=== PATIENT | female | born 2000 | race Caucasian/White ===

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

== ENCOUNTER 2019-09-12 22:02 | Observation (INO) ==
[2019-09-12] MEDS ORDERED: ONDANSETRON INJ 2 MG/ML 2 ML VIAL IV STA ×2 (22:47→23:04)
[2019-09-12 23:03] LABS: Basophils # (auto) 0.03 K/uL (0-0.2); Basophils % (auto) 0.3 %; Eosinophils # (auto) 0.09 K/uL (0-0.5); Eosinophils % (auto) 0.9 %; Hematocrit (blood only) 44.9 % (37-47); Hemoglobin 15.5 g/dL (12.0-16.0); Immature Granulocytes # (auto) 0.02 K/uL (0.00-0.02); Immature Granulocytes % (auto) 0.2 %; Lymphocytes % (auto) 28.5 %; Mean Corpuscular Hgb Conc 34.5 g/dL (32-36); Mean Corpuscular Volume 89.8 fL (80-100); Mean Platelet Volume 9.3 fL (7.4-10.4); Monocytes # (auto) 0.58 K/uL (0.11-0.59); Monocytes % (auto) 5.5 %; Neutrophils # (auto) 6.81 K/uL (1.4-6.5); Neutrophils % (auto) 64.6 %; Platelet Count 359 K/uL (130-400); RDW Standard Deviation 38.9 fL (36.4-46.3); White Blood Count 10.53 K/uL (4.8-10.8)
[2019-09-12] MEDS ORDERED: KETOROLAC 30 MG/ML VIAL IV STA (23:04)
[2019-09-12] MEDS ORDERED: HYDROmorphone INJ 0.5 MG/0.5 ML SYR IV PRN (23:04)
[2019-09-12] MEDS ORDERED: SODIUM CHLORIDE 0.9% 1000ML 1,000 ML IV SCH (23:15)
[2019-09-12 23:19] LABS: Albumin Level 3.9 gm/dl (3.4-5.0); BUN Creatinine Ratio 10.9 (10-20); Calcium 9.3 mg/dl (8.5-10.1); Creatinine Clr Calc Pharmacy 86.7 ml/min; Est GFR (African American) 98.7; Est GFR (Non-African American) 85.1; Potassium 3.5 mmol/L (3.5-5.1)
[2019-09-12 23:22] LABS: Albumin Globulin Ratio 0.9 (0.9-2); Bilirubin,Total 0.3 mg/dl (0.2-1); Globulin 4.3 gm/dl (2.5-4.0); Total Protein 8.2 gm/dl (6.4-8.2)
[2019-09-12 23:28] LABS: Pregnancy Test, Urine Negative (Negative)
[2019-09-12 23:31] LABS: Appearance Urine Turbid (Clear); Bacteria Urine Automated 1+ (Negative); Bilirubin Urine Negative (Negative); Blood Urine Negative (Negative); Color Urine Yellow; Epithelial Cell Urine Auto >30 /lpf (0-5); Glucose Urine UA Negative (Negative); Ketones Urine Negative (Negative); Leukocyte Esterase Urine Negative (Negative); Nitrite Urine Negative (Negative); Protein Urine Negative (Negative); RBC Urine Automated 0-4 /hpf (0-4); Specific Gravity Urine 1.025 (1.000-1.030); Urobilinogen Urine Negative (Negative); pH Urine 6.5 (4.5-7.5)
[2019-09-12] MEDS ORDERED: IOVERSOL 100ml IV PRN (23:43)
[2019-09-13] MEDS ORDERED: cefOXitin 2,000 MG/60 ML BAG IV STA (00:36)
[2019-09-13] MEDS ORDERED: METOCLOPRAMIDE HCL INJ 5 MG/ML 2 ML VIAL IV STA (00:40)
[2019-09-13] MEDS ORDERED: IOVERSOL 100ml IV PRN (03:18)
--- NOTE | 2019-09-13 04:30 | History & Physical Report ---
Date of Service September 13, 2019 Assessment & Plan (1) Appendicitis, acute: Pathology was discussed with the patient including modality of therapy which would include antibiotic or laparoscopy and this was discussed as stated in for the patient felt her just have a 20% chance that she may have a recurrent attack with antibiotic treatment she would like to proceed with laparoscopy risk and complication of the surgery were explained to her including bleeding infection injury to other organs and she would like to proceed accordingly She had a sensitivity to penicillin hives at a young age we will discuss with anesthesia and plan to give her preoperative antibiotics suspect Mefoxin would be okay Present on Admission?: Yes History of Present Illness I was called approximately 12:30 in the morning by the ER physician with the patient that had a normal white count [address] noncontrast with a history of vomiting pretty significantly at that time recommended for the CT scan with contrast which was done there was because approximately 4:00 with a dilated appendix at 9 mm and some fat stranding Primary Care Provider: [facility] Allergies Allergy/AdvReac Type Severity Reaction Status Date / Time Penicillins Allergy Intermediate HIVES Verified 09/12/19 22:41 Home Medications Home Medications Medication Instructions Recorded Confirmed Type acetaminophen [Tylenol Extra 1,000 mg PO Q6H PRN 09/12/19 09/12/19 History Strength] levonorgestrel-ethinyl estrad 1 tab PO DAILY 09/12/19 09/12/19 History [Larissia] Past Med/Surg History Medical History Appendicitis, acute Asthma Fracture of phalanx of left little finger Surgical History History of orthopedic surgery Social History Preferred Language: French Communication Ability: Effective Education Professor Required: No Beliefs That Will Affect Care: None Current Living Situation: Alone Feels Safe at Home: Yes Smoking Status: Never smoker Second Hand Exposure: No ; Hx Alcohol Use: No Hx Substance Use: No Review of Systems Gastrointestinal: The patient stated that she started getting sick approximately 11 hours ago where pain started around the upper belly and eventually migrated to the right side she had no vomiting until she came into the emergency room she has never had any pain like this before In general she is been healthy without any issues the only surgery she said is a fracture finger the needed pin Physical Exam Constitutional: WD/WN, vitals as above well developed and well nourished Eyes: Clear nonicteric conjunctiva slightly injected ENMT: external ear and nose normal, oropharynx normal Neck: trachea midline, no thyromegaly Respiratory: normal respiratory effort, lungs clear to auscultation Cardiovascular: RRR, no murmur, no edema Gastrointestinal (Abdomen): Patient has pain and tenderness in the right lower quadrant no true McBurney sign Results & Data Vital Signs (Past 12 Hours) Vital Signs Temp Pulse Pulse Resp BP BP Pulse Ox 09/13/19 03:19 66 18 125/59 L 97 09/13/19 01:43 78 17 137/64 98 09/13/19 00:52 99 H 19 129/74 99 09/12/19 23:40 89 16 149/86 H 100 09/12/19 23:14 78 20 100 09/12/19 22:35 77 20 120/82 100 09/12/19 22:04 36.6 C 83 20 136/88 100 PG Care Time/CCT Total # of Minutes Spent Total Time Spent with Patient: Total time spent is greater than 50% in coordination of care (as documented) at patient's floor/unit and/or counseling patient:
--- NOTE | 2019-09-13 04:35 | Emergency Department Note ---
Entered by Kaylee Flores acting as a scribe for Wilber Cortes MD History of Present Illness General Chief complaint: Abdominal Pain Stated complaint: ABD PAIN Time Seen by Provider: 09/12/19 22:58 Source: patient History of Present Illness Onset (ago): hour(s) 5 Location: abdomen (central) Pain Consistency: + other (worsening) Maximum Pain Intensity: 8 Quality: + other (cramping) Relieved By: not by medication (Tylenol) Associated symptoms: + nausea/vomiting Treatments prior to arrival: other (Tylenol) The patient is a 19 year old female who presents to the Emergency Room with complaints of worsening central abdominal pain that began at 1700, approximately 5 hours prior to arrival. The patient states that this pain came on suddenly approximately one hour after she ate dinner. The patient describes her pain as cramping. She reports nausea and vomiting currently. The patient states that she took Tylenol when her symptoms began, but states that this did not relieve her symptoms. The patient reports that her last menstrual period was last week. She denies any chance she may have retained a tampon. The patient denies any previous abdominal surgeries. Home Medications Home Medications Medication Instructions Recorded Confirmed Type acetaminophen [Tylenol Extra 1,000 mg PO Q6H PRN 09/12/19 09/12/19 History Strength] levonorgestrel-ethinyl estrad 1 tab PO DAILY 09/12/19 09/12/19 History [Larissia] Allergies Allergy/AdvReac Type Severity Reaction Status Date / Time Penicillins Allergy Intermediate HIVES Verified 09/12/19 22:41 Past Med/Surg History Medical History Appendicitis, acute Asthma Fracture of phalanx of left little finger Surgical History History of orthopedic surgery Social History Preferred Language: Sami Communication Ability: Effective Milking Worker Required: No Beliefs That Will Affect Care: None Current Living Situation: Alone Feels Safe at Home: Yes Smoking Status: Never smoker Second Hand Exposure: No ; Hx Alcohol Use: No Hx Substance Use: No Review of Systems See HPI for pertinent positives & negatives. and A total of 10 systems reviewed and were otherwise negative Physical Exam Vital Signs Vital Signs - 24 hr 09/12/19 22:04 09/12/19 22:35 09/12/19 23:14 Temperature 36.6 C Temperature Source Oral Sepsis Recent Fever Within 48 Hours No Sepsis New/Unexplained Change in Mental Status No Sepsis Action Taken by Nursing No Action Required Pulse Rate 83 78 Pulse Rate [Finger] 77 Pulse Rhythm Regular Pulse Rhythm [Finger] Regular Pulse Strength [Finger] Normal Respiratory Rate 20 20 20 Respiratory Effort / Characteristics Non-Labored Spontaneous Non-Labored Spontaneous Respiratory Depth Normal Normal Respiratory Pattern Regular Blood Pressure 136/88 Blood Pressure [Left Arm] 120/82 Blood Pressure Mean 104 Blood Pressure Mean [Left Arm] 94 Blood Pressure Position [Left Arm] Lying Pulse Oximetry 100 100 100 Oxygen Delivery Method Room Air Room Air Room Air 09/12/19 23:40 09/13/19 00:52 09/13/19 01:43 Temperature Temperature Source Sepsis Recent Fever Within 48 Hours Sepsis New/Unexplained Change in Mental Status Sepsis Action Taken by Nursing Pulse Rate Pulse Rate [Finger] 89 99 H 78 Pulse Rhythm Pulse Rhythm [Finger] Regular Regular Pulse Strength [Finger] Normal Normal Respiratory Rate 16 19 17 Respiratory Effort / Characteristics Non-Labored Spontaneous Non-Labored Spontaneous Non-Labored Spontaneous Respiratory Depth Normal Normal Normal Respiratory Pattern Regular Regular Blood Pressure Blood Pressure [Left Arm] 149/86 H 129/74 137/64 Blood Pressure Mean Blood Pressure Mean [Left Arm] 107 92 88 Blood Pressure Position [Left Arm] Lying Lying Pulse Oximetry 100 99 98 Oxygen Delivery Method Room Air Room Air Room Air 09/13/19 03:19 09/13/19 04:24 Temperature Temperature Source Sepsis Recent Fever Within 48 Hours Sepsis New/Unexplained Change in Mental Status Sepsis Action Taken by Nursing Pulse Rate Pulse Rate [Finger] 66 94 H Pulse Rhythm Pulse Rhythm [Finger] Regular Regular Pulse Strength [Finger] Normal Normal Respiratory Rate 18 18 Respiratory Effort / Characteristics Non-Labored Spontaneous Non-Labored Spontaneous Respiratory Depth Normal Normal Respiratory Pattern Regular Regular Blood Pressure Blood Pressure [Left Arm] 125/59 L 122/60 Blood Pressure Mean Blood Pressure Mean [Left Arm] 81 80 Blood Pressure Position [Left Arm] Lying Lying Pulse Oximetry 97 98 Oxygen Delivery Method Room Air Room Air GENERAL: Awake, alert, well-appearing, in no acute distress. Actively vomiting. HENT: Normocephalic, atraumatic. Oropharynx unremarkable. EYES: Normal conjunctiva. Sclera non-icteric. NECK: Supple. No nuchal rigidity. FROM. No JVD. RESPIRATORY: Clear to auscultation. CARDIAC: Regular rate, normal rhythm. Extremities warm and well perfused. Pulses equal. ABDOMEN: Soft, non-distended. Tenderness to right lower quadrant. No rebound or guarding. No masses. RECTAL: Deferred. MUSCULOSKELETAL: Chest examination reveals no tenderness. The back is symmetrical on inspection without obvious abnormality. There is no CVA tenderness to palpation. No joint edema. LOWER EXTREMITIES: Calves are equal size bilaterally and non-tender. No edema. No discoloration. NEURO: Normal sensorium. No sensory or motor deficits noted. SKIN: No rash or jaundice noted. Course 230: Past medical records reviewed. The patient was evaluated in room B5. A complete history and physical exam was performed. 0035: I checked on and updated the patient on her test results. 0038: I discussed the case with Dr. Eddy Surgery who recommends a repeat CT with contrast. 0046: I checked on and updated the patient. I explained all results and the plan with the patient's mother on the phone. 0351: I discussed the results of the patient's second CT with [facility]. 0402: I discussed the case with Dr. Eddy Surgery and it was decided that, given the patient's confirmed appendicitis on the second CT, he wi ll accept the patient for further evaluation. Administered Medications Hydromorphone HCl (Dilaudid) 0.5 mg IV Q15M PRN PRN Reason: Pain Stop: 09/26/19 23:03 Last Admin: 09/13/19 01:09 Dose: 0.5 mg Documented by: [id number] Ioversol (Optiray 320 100ml) 100 ml IV ONCE PRN PRN Reason: Interaction Checking Stop: 09/16/19 23:42 Last Admin: 09/12/19 23:43 Dose: 91 ml Documented by: [id number] Ioversol (Optiray 320 100ml) 100 ml IV ONCE PRN PRN Reason: Interaction Checking Stop: 09/17/19 03:17 Last Admin: 09/13/19 03:19 Dose: 92 ml Documented by: [id number] Discontinued Medications Sodium Chloride (Nss 1000ml) 1,000 mls @ 999 mls/hr IV .Q1H1M EVERARDO Stop: 09/13/19 00:15 Last Infusion: 09/13/19 00:54 Dose: 0 mls/hr Documented by: [id number] Admin: 09/12/19 23:13 Dose: 999 mls/hr Documented by: [id number] Cefoxitin Sodium (Mefoxin) 2,000 mg in 60 mls @ 100 mls/hr IV NOW STA Stop: 09/13/19 01:11 Last Infusion: 09/13/19 02:28 Dose: 0 mls/hr Documented by: [id number] Admin: 09/13/19 01:12 Dose: 100 mls/hr Documented by: [id number] Ketorolac Tromethamine (Toradol) 30 mg IV NOW STA Stop: 09/12/19 23:05 Last Admin: 09/12/19 23:09 Dose: 30 mg Documented by: [id number] Metoclopramide HCl (Reglan) 10 mg IV NOW STA Stop: 09/13/19 00:41 Last Admin: 09/13/19 01:51 Dose: 10 mg Documented by: [id number] Ondansetron HCl (Zofran) 4 mg IV NOW STA Stop: 09/12/19 22:48 Last Admin: 09/12/19 22:50 Dose: 4 mg Documented by: [id number] Ondansetron HCl (Zofran) 4 mg IV NOW STA Stop: 09/12/19 23:05 Last Admin: 09/13/19 01:09 Dose: 4 mg Documented by: [id number] Medical Decision Making Differential Diagnosis Differential diagnoses includes but is not limited to gastritis, peptic ulcer disease, GERD, gallbladder disease, pancreatitis, small bowel obstruction, acute coronary syndrome, pericarditis, ischemic bowel, irritable bowel disease, irritable bowel syndrome, appendicitis, diverticulitis, malignancy, hernia, urinary tract infection, torsion, /ectopic , perforation, trauma, infectious. Medical Records Attestation: I reviewed the patient's medical records. Home Medications Current Medication List: was personally reviewed by me Laboratory Data Attestation: I reviewed the patient's lab results. Result diagrams: 09/12/19 22:23 09/12/19 22:23 Lab Results 09/12/19 09/12/19 09/12/19 Range/Units 22:23 22:23 22:23 WBC 10.53 (4.8-10.8) K/uL RBC 5.00 (4.2-5.4) M/uL Hgb 15.5 (12.0-16.0) g/dL Hct 44.9 (37-47) % MCV 89.8 (80-100) fL MCH 31.0 (25-34) pg MCHC 34.5 (32-36) g/dL RDW Std Deviation 38.9 (36.4-46.3) fL RDW Coeff of Dana 12.0 (11.5-14.5) % Plt Count 359 (130-400) K/uL MPV 9.3 (7.4-10.4) fL Immature Gran % (Auto) 0.2 % Neut % (Auto) 64.6 % Lymph % (Auto) 28.5 % Morton % (Auto) 5.5 % Eos % (Auto) 0.9 % Baso % (Auto) 0.3 % Immature Gran # (Auto) 0.02 (0.00-0.02) K/uL Neut # (Auto) 6.81 H (1.4-6.5) K/uL Lymph # (Auto) 3.00 (1.2-3.4) K/uL Morton # (Auto) 0.58 (0.11-0.59) K/uL Eos # (Auto) 0.09 (0-0.5) K/uL Baso # (Auto) 0.03 (0-0.2) K/uL Sodium 138 (136-145) mmol/L Potassium 3.5 (3.5-5.1) mmol/L Chloride 105 (98-107) mmol/L Carbon Dioxide 26 (21-32) mmol/L Anion Gap 7.0 (3-11) BUN 10 (7-18) mg/dl Creatinine 0.96 (0.6-1.2) mg/dl Est Cr Clr Drug Dosing 86.7 ml/min Est GFR ( Amer) 98.7 Est GFR (Non-Af Amer) 85.1 BUN/Creatinine Ratio 10.9 (10-20) Glucose 91 (70-99) mg/dl Calcium 9.3 (8.5-10.1) mg/dl Total Bilirubin 0.3 (0.2-1) mg/dl AST 16 (15-37) U/L ALT 22 (12-78) U/L Alkaline Phosphatase 56 (45-117) U/L Total Protein 8.2 (6.4-8.2) gm/dl Albumin 3.9 (3.4-5.0) gm/dl Globulin 4.3 H (2.5-4.0) gm/dl Albumin/Globulin Ratio 0.9 (0.9-2) Lipase 137 (73-393) U/L Urine Color Yellow Urine Appearance Turbid A (Clear) Urine pH 6.5 (4.5-7.5) Ur Specific Irving 1.025 (1.000-1.030) Urine Protein Negative (Negative) Urine Glucose (UA) Negative (Negative) Urine Ketones Negative (Negative) Urine Blood Negative (Negative) Urine Nitrite Negative (Negative) Urine Bilirubin Negative (Negative) Urine Urobilinogen Negative (Negative) Ur Leukocyte Esterase Negative (Negative) Urine WBC (Auto) 1-5 (0-5) /hpf Urine RBC (Auto) 0-4 (0-4) /hpf U Hyaline Cast (Auto) 1-5 (0-5) /lpf U Epithel Cells (Auto) >30 H (0-5) /lpf Urine Bacteria (Auto) 1+ H (Negative) Urine Test (Negative) 09/12/19 Range/Units 22:23 WBC (4.8-10.8) K/uL RBC (4.2-5.4) M/uL Hgb (12.0-16.0) g/dL Hct (37-47) % MCV (80-100) fL MCH (25-34) pg MCHC (32-36) g/dL RDW Std Deviation (36.4-46.3) fL RDW Coeff of Dana (11.5-14.5) % Plt Count (130-400) K/uL MPV (7.4-10.4) fL Immature Gran % (Auto) % Neut % (Auto) % Lymph % (Auto) % Morton % (Auto) % Eos % (Auto) % Baso % (Auto) % Immature Gran # (Auto) (0.00-0.02) K/uL Neut # (Auto) (1.4-6.5) K/uL Lymph # (Auto) (1.2-3.4) K/uL Morton # (Auto) (0.11-0.59) K/uL Eos # (Auto) (0-0.5) K/uL Baso # (Auto) (0-0.2) K/uL Sodium (136-145) mmol/L Potassium (3.5-5.1) mmol/L Chloride (98-107) mmol/L Carbon Dioxide (21-32) mmol/L Anion Gap (3-11) BUN (7-18) mg/dl Creatinine (0.6-1.2) mg/dl Est Cr Clr Drug Dosing ml/min Est GFR ( Amer) Est GFR (Non-Af Amer) BUN/Creatinine Ratio (10-20) Glucose (70-99) mg/dl Calcium (8.5-10.1) mg/dl Total Bilirubin (0.2-1) mg/dl AST (15-37) U/L ALT (12-78) U/L Alkaline Phosphatase (45-117) U/L Total Protein (6.4-8.2) gm/dl Albumin (3.4-5.0) gm/dl Globulin (2.5-4.0) gm/dl Albumin/Globulin Ratio (0.9-2) Lipase (73-393) U/L Urine Color Urine Appearance (Clear) Urine pH (4.5-7.5) Ur Specific Irving (1.000-1.030) Urine Protein (Negative) Urine Glucose (UA) (Negative) Urine Ketones (Negative) Urine Blood (Negative) Urine Nitrite (Negative) Urine Bilirubin (Negative) Urine Urobilinogen (Negative) Ur Leukocyte Esterase (Negative) Urine WBC (Auto) (0-5) /hpf Urine RBC (Auto) (0-4) /hpf U Hyaline Cast (Auto) (0-5) /lpf U Epithel Cells (Auto) (0-5) /lpf Urine Bacteria (Auto) (Negative) Urine Test Negative (Negative) Imaging Data Radiologist's Impression: Radiology results as stated below per my review and the radiologist's interpretation: CT ABDOMEN & PELVIS With Contrast: The distal appendix measures 7 to 8 mm for example axial 55without definite surrounding inflammatory change, clinically correlate No bowel dilation or free air Lung bases are clear Abdominal solid organs, gallbladder and abdominal aorta appear within limits Ovaries appear within limits No free fluid Radiologist: Lon Motley M.D. Study ready at 23:45 and initial results transmitted at 00:31 CT ABDOMEN & PELVIS With Contrast: The appendix is within maximum diameter of 9 mm with mild wall thickening and surrounding fat stranding which could represent early/developing appendicitis in the correct clinical setting. No perforation or abscess. No other findings to explain patient's symptoms. Radiologist: Kory Pringle MD Study ready at 03:20 and initial results transmitted at 03:43 Blood Pressure Blood Pressure Findings: Normal blood pressure MDM Narrative This is a 19-year-old female who presents emergency department complaining of vomiting as well as abdominal pain. I did offer to speak with this patient's mother however the patient originally declined. She does have a slight elevation in her white blood cell count. She is not . She has a normal renal profile normal liver profile. Based on the patient's physical examination the patient was sent for CAT scan of the abdomen pelvis which was concerning for an early appendicitis. The surgeon requested a CAT scan with contrast which was performed this was even more concerning for a thickened appendix at 9 mm with stranding around the appendix. Based on this I did discuss the case with the surgeon. The patient was started on Mefoxin here in the emergency department. Impression & Plan Abdominal pain, Acute appendicitis Discharge Plan Visit Data Chief Complaint: Abdominal Pain Stated Complaint: ABD PAIN ED Provider: Wilber Cortes Discharge Problem: Abdominal pain, Acute appendicitis Forms Stand Alone Forms: [facility] DZZOM Prescriptions Prescriptions: No Action levonorgestrel-ethinyl estrad [Larissia] 0.1-20 mg-mcg tablet 1 tab PO DAILY RF: 0 acetaminophen [Tylenol Extra Strength] 500 mg Tablet 1,000 mg PO Q6H PRN (Reason: Pain) RF: 0 Discharge Problem: Abdominal pain Qualifiers: Abdominal location: right lower quadrant Qualified Code(s): R10.31 - Right lower quadrant pain Acute appendicitis Qualifiers: Acute appendicitis type: unspecified acute appendicitis type Qualified Code(s): K35.80 - Unspecified acute appendicitis The scribe's documentation has been prepared under my direction and personally reviewed by me in its entirety. I confirm that the note above accurately reflects all work, treatment, procedures, and medical decision making performed by me.
[2019-09-13] MEDS ORDERED: DEXAMETHASONE SOD INJ 4 MG/ML VIAL ONE (04:44)
[2019-09-13] MEDS ORDERED: MIDAZOLAM HCL 1 MG/ML 2ML VIAL ONE (04:44)
[2019-09-13] MEDS ORDERED: NEOSTIGMINE METHYLSULFATE 5 MG/5 ML SYR ONE (04:44)
[2019-09-13] MEDS ORDERED: SUCCINYLCHOLINE CHLORIDE 20 MG/ML 10 ML VIAL ONE (04:44)
[2019-09-13] MEDS ORDERED: GLYCOPYRROLATE 0.2 MG/ML VIAL ONE (04:44)
[2019-09-13] MEDS ORDERED: ROCURONIUM BROMIDE 10 MG/ML 5 ML VIAL ONE (04:44)
[2019-09-13] MEDS ORDERED: ONDANSETRON INJ 2 MG/ML 2 ML VIAL ONE (04:44)
[2019-09-13] MEDS ORDERED: PROPOFOL IV EMULSION 10 MG/ML 20 ML VIAL IV ONE (04:44)
[2019-09-13] MEDS ORDERED: fentaNYL citrate 100 MCG/2 ML VIAL ONE ×4 (04:44→06:32)
[2019-09-13] MEDS ORDERED: ONDANSETRON INJ 2 MG/ML 2 ML VIAL IV PRN ×2 (04:53→06:12)
[2019-09-13] MEDS ORDERED: ePHEDrine sulfate 50 MG/ML AMP IV PRN (04:53)
[2019-09-13] MEDS ORDERED: HYDROmorphone INJ 1 MG/ML SYRINGE IV PRN (04:53)
[2019-09-13] MEDS ORDERED: ATROPINE SULFATE 0.1 MG/ML 10ML SYR IV PRN (04:53)
[2019-09-13] MEDS ORDERED: PROMETHAZINE HCL 12.5 MG in SODIUM CHLORIDE 0.9% 50 ML IV PRN (04:53)
--- NOTE | 2019-09-13 04:55 | Anesthesiology Consultation ---
Date of Service September 13, 2019 Assessment & Plan (1) Encounter for pre-operative examination: Chart Review Chart Review: Acceptable Risk for Surgery and Patient NOT seen in Pre Admission Testing Consults Requested none History Surgery Operation Date: 09/13/19 05:30 Proposed Procedures p Laparoscopic Appendectomy - Walter Cadet MD Height/Weight Height: 5 ft 2 in Weight: 71.8 kg Allergies Allergy/AdvReac Type Severity Reaction Status Date / Time Penicillins Allergy Intermediate HIVES Verified 09/12/19 22:41 Medications Home Medications Medication Instructions Recorded Confirmed Last Taken acetaminophen [Tylenol Extra 1,000 mg PO Q6H PRN 09/12/19 09/12/19 09/12/19 17:00 Strength] levonorgestrel-ethinyl estrad 1 tab PO DAILY 09/12/19 09/12/19 Unknown [Larissia] Active Medications Generic Name Dose Route Start Last Admin Trade Name Freq PRN Reason Stop Dose Admin Hydromorphone HCl 0.5 mg 09/12/19 23:04 09/13/19 01:09 Dilaudid IV 09/26/19 23:03 0.5 mg Q15M PRN Administration Pain Ioversol 100 ml 09/12/19 23:43 09/12/19 23:43 Optiray 320 100ml IV 09/16/19 23:42 91 ml ONCE PRN Administration Interaction Checking Ioversol 100 ml 09/13/19 03:18 09/13/19 03:19 Optiray 320 100ml IV 09/17/19 03:17 92 ml ONCE PRN Administration Interaction Checking NPO Date Last Intake of Fluids: 09/13/19 Time Last Intake of Fluids: 02:00 Last Intake of Fluids Comment: oral contrast for CT Date Last Intake of Solids: 09/12/19 Time Last Intake of Solids: 16:00 Last Intake of Solids Comment: pasta Past Medical History Medical History Appendicitis, acute Asthma Fracture of phalanx of left little finger Exercise / Class Metabolic Activity II 4-5 Yardwork/Stairs/Walk up hill Past Surgical History Surgical History History of orthopedic surgery Past Anesthesia History No Hx of Anesthesia Complications and No Family Hx of Anesthesia Complications History of PONV No Hx of PONV and No Hx of Motion Sickness Social History Smoking Status: Never smoker Hx Alcohol Use: No Hx Substance Use: No Physical Exam Vital Signs Last Vital Signs Temp 36.6 C 09/12/19 22:04 Pulse 94 H 09/13/19 04:24 Resp 18 09/13/19 04:24 BP 122/60 09/13/19 04:24 Pulse Ox 98 09/13/19 04:24 Testing Laboratory Results 09/12/19 22:23 09/12/19 22:23 Urine Color Yellow 09/12/19 22:23 Urine Appearance Turbid (Clear) A 09/12/19 22:23 Urine pH 6.5 (4.5-7.5) 09/12/19 22:23 Ur Specific [place] 1.025 (1.000-1.030) 09/12/19 22:23 Urine Protein Negative (Negative) 09/12/19 22:23 Urine Glucose (UA) Negative (Negative) 09/12/19 22:23 Urine Ketones Negative (Negative) 09/12/19 22:23 Urine Nitrite Negative (Negative) 09/12/19 22:23 Ur Leukocyte Esterase Negative (Negative) 09/12/19 22:23 Urine WBC (Auto) 1-5 /hpf (0-5) 09/12/19 22:23 Urine RBC (Auto) 0-4 /hpf (0-4) 09/12/19 22:23 U Hyaline Cast (Auto) 1-5 /lpf (0-5) 09/12/19 22:23 U Epithel Cells (Auto) >30 /lpf (0-5) H 09/12/19 22:23 Urine Bacteria (Auto) 1+ (Negative) H 09/12/19 22:23 Urine Test Negative (Negative) 09/12/19 22:23 09/12/19 22:23 Urine Test Negative
[2019-09-13] MEDS ORDERED: LIDOCAINE/EPINEPHRINE 1% 20 ML VIAL ONE (05:19)
--- NOTE | 2019-09-13 06:08 | Post Operative Brief Note ---
PG Immediate Post Op with CF Date of Surgery September 13, 2019 Pre & Post Diagnosis Operation Date: 09/13/19 05:30 Pre-Op Diagnosis: Acute appendicitis Post-Op Diagnosis: Acute appendicitis I identified the patient and participated in the time-out.: Yes Procedure Operation Date: 09/13/19 05:30 Actual Procedures p Laparoscopic Appendectomy - Walter Cadet MD Surgeon Walter Cadet MD Jewelry Department Supervisor 0 Estimated Blood Loss 5 Findings Consistent with Post-Op Diagnosis Specimens Specimen Description: A: Appendix
[2019-09-13] MEDS ORDERED: ACETAMINOPHEN 325 MG TAB PO PRN (06:12)
--- NOTE | 2019-09-13 06:30 | Anesthesiology Progress Note ---
Date of Service September 13, 2019 Anesthesia Post Procedure Vital Signs Vital Signs: Temp Pulse Pulse Resp BP BP Pulse Ox 09/13/19 06:20 36.5 C 111 H 18 126/72 100 09/13/19 04:24 94 H 18 122/60 98 09/13/19 03:19 66 18 125/59 L 97 09/13/19 01:43 78 17 137/64 98 09/13/19 00:52 99 H 19 129/74 99 09/12/19 23:40 89 16 149/86 H 100 09/12/19 23:14 78 20 100 09/12/19 22:35 77 20 120/82 100 09/12/19 22:04 36.6 C 83 20 136/88 100 Pain Intensity Abdomen: Pain Intensity: 5 Transfer of Care Handoff Completed per policy Notes Mental Status: alert / awake / arousable and participated in evaluation Patient Amnestic to Procedure: Yes Nausea / Vomiting: adequately controlled Pain: adequately controlled Airway Patency, RR, SpO2: stable & adequate BP & HR: stable & adequate Hydration State: stable & adequate Anesthetic Complications: no major complications apparent and Pt Satisfied with anesthetic care
--- NOTE | 2019-09-13 06:31 | Operative Report ---
PG Post Operative Report Pre & Post Diagnosis Operation Date: 09/13/19 05:30 Pre-Op Diagnosis: Acute appendicitis Post-Op Diagnosis: Acute appendicitis I identified the patient and participated in the time-out.: Yes Procedure Operation Date: 09/13/19 05:30 Actual Procedures p Laparoscopic Appendectomy - Walter Cadet MD The patient was brought into the operating theater supine position general endotracheal anesthesia the abdomen was prepped with Betadine solution properly draped systemic antibiotics given a timeout was had patient was identified this point and made a small incision approximately quarter o'clock above the umbilical fold Veress needle followed followed by CO2 point of entry respectively after 5 mm trocar was placed without any injury on the requisition right upper quadrant 5 mm port was placed with preemptive local analgesic attention was turned to the cecum the cecum itself had an adhesive band quite broad space attached laterally we can identify the tip of the appendix which was for full itself going down towards the pelvic brim at this point I changed the 5 mm umbilical port to 11 mm by first enlarging the skin incision and then using a Carolee clamp to dilate the tract followed by 11mm trocar all under direct visualization this 5 mm was then placed in left lower quadrant direct visualization with preemptive local analgesic patient was turned in left lateral camera placed in left lower quadrant we placed then we elevated the appendix with atraumatic was divided some adhesions were fine adhesions into the retroperitoneal area as we elevated things more we then we created a window between the appendix and the cecum the appendix itself was inflamed but it was not ruptured therefore at this point we placed a hughes load and fired to the colostomy take the appendix off the cecum. We then used to elevate clips to 10 mm and 5 mm to free up the mesoappendix and the sequential area to make sure the mesoappendix is completely hemostatic as we freed the appendix completely the appendix was placed in an Endopouch and then taken out intact through the epigastric port the patient right lower quadrant was then irrigated placed in reverse Trendelenburg position suctioned out the pelvis hemostasis was excellent and direct visualization we took out individual trochars unless the right upper quadrant trocar wounds were closed with fascial suture [id number] times 2-0 Vicryl in the umbilical fascia the abdomen Monocryl Steri-Strips applied procedure was tolerated well by the patient estimated blood loss 5 cc Surgeon Walter Cadet MD Fire Lieutenant 0 Estimated Blood Loss 5 Findings Consistent with Post-Op Diagnosis Specimens appendix Description of Procedure merda I attest to the content of the Intraoperative Record and any orders documented therein. Any exceptions are noted below.
[2019-09-13] MEDS: fentaNYL citrate 100 MCG/2 ML VIAL IV PRN ×4 (06:33→06:48)
--- NOTE | 2019-09-13 06:50 | CT Scan Report ---
CT abd pelvis oral and IV con CLINICAL HISTORY: Mid and right lower quadrant pain. COMPARISON STUDY: 09/12/2019 TECHNIQUE: The patient was scanned following administration of dilute oral contrast, and in a dynamic helical fashion during intravenous administration of 92 cc of Optiray 320. A dose lowering techniqu e was utilized adhering to the principles of ALARA. CT DOSE: 405.64 mGy.cm FINDINGS: Lower chest: The heart is normal in size and configuration, without pericardial effusion. The lung ba ses and pleural spaces are clear. Liver: The contrast-enhanced liver is normal in size, contour, and attenuation. There is no intrahepa tic biliary ductal dilatation. The hepatic veins and portal veins are patent. Gallbladder: Unremarkable. Spleen: Normal in size and attenuation. Pancreas: Unremarkable. Adrenal glands: Unremarkable. Kidneys: There is symmetric renal cortical enhancement. The kidneys are normal in size without hydron ephrosis. Bowel: There are no transition zones indicate bowel obstruction. There is a thick-walled fluid-filled appendix measuring 9 mm in diameter. The setting of right lower quadrant abdominal pain, the finding s are indicative of acute appendicitis. Peritoneum: There is no intraperitoneal free air or abdominal ascites. Vasculature: The abdominal aorta is normal in course and caliber. Adenopathy: None. Pelvic viscera: The bladder, and pelvic viscera are unremarkable. Skeletal structures: No destructive osseous lesions are seen. IMPRESSION: 1. Thick walled fluid-filled appendix measuring 9 mm in diameter. There is subtle periappendiceal fat stranding. In the setting of right lower quadrant abdominal pain, the findings are indicative of an early acute appendicitis. Electronically signed by: Angelo Copeland M.D. 09/13/2019 6:49 AM
--- NOTE | 2019-09-13 06:58 | CT Scan Report ---
ABDOMEN AND PELVIS CT WITH IV CONTRAST CT DOSE: 361.66 mGy.cm HISTORY: Acute right lower quadrant abdominal pain Pt c/o RLQ abd pain TECHNIQUE: Multiaxial CT images of the abdomen and pelvis were performed following the IV administrat ion of 92 cc of Optiray 320, A dose lowering technique was utilized adhering to the principles of [place]. COMPARISON STUDY: CT abdomen and pelvis with IV and oral contrast 09/13/2019 FINDINGS: Clear lung bases. No pneumatosis or pneumoperitoneum. Imaged inferior cardiac chambers appear unremar kable. Gallbladder, spleen, pancreas and adrenal glands appear unremarkable. Mild periportal edema li aury related to overhydration. Kidneys, ureters, urinary bladder, uterus and adnexa appear unremarkab le. Trace free pelvic fluid is likely on a physiologic basis. Aorta and IVC appear unremarkable. No bowel obstruction. Terminal ileum is unremarkable. Dilated fluid-filled appendix measures up to 9 mm. Minimal periappendiceal inflammatory stranding. No evidence of perforation or drainable fluid col lection. The soft tissues and breast parenchyma appear unremarkable. Remote bilateral pars defects wi thout spondylolisthesis. Transitional lumbosacral anatomy. IMPRESSION: 1. Fluid-filled mildly dilated appendix with subtle periappendiceal inflammatory stranding is suggest colten of early acute appendicitis. 2. No bowel obstruction. 3. Remote bilateral L5 pars defects without spondylolisthesis. Electronically signed by: Hernán Dennis M.D. 09/13/2019 6:56 AM
[2019-09-13] MEDS: OXYCODONE/ACETAMINOPHEN 5mg/325mg TAB PO PRN ×2 (07:58→13:11)
[2019-09-13 10:22] VITALS: BP 105/73; PULSE 80; TEMP 98.1; O2SAT 96
--- NOTE | 2019-09-13 15:22 | Discharge Summary ---
Date of Service September 13, 2019 Principal Diagnosis Acute appendicitis Discharge Exam Gastrointestinal (Abdomen) Inspection/Auscultation: + abdominal surgical incision (steri-strips intact) Percussion/Palpation: abdomen soft Discharge Data Allergies Allergy/AdvReac Type Severity Reaction Status Date / Time Penicillins Allergy Intermediate HIVES Verified 09/12/19 22:41 Consultations 09/13/19 04:02 ED Decision to Admit Stat Procedures Performed Operation Date: 09/13/19 05:30 Actual Procedures p Laparoscopic Appendectomy - Walter Cadet MD Ordered Studies 09/12/19 23:04 CT abd pelvis IV con only Urgent 09/13/19 00:39 CT abd pelvis oral and IV con Urgent Hospital Course (1) Acute appendicitis: 19 y/o female presented to the ED with mid abdominal pain that began earlier that evening. CT was consistent with acute appendicitis. She was taken to the OR for laparoscopic appendectomy in the salesperson handbags and transferred to the surgical floor for observation. She was able to tolerate diet and oral analgesics and was stable for discharge later in the day. Total Time Total Time Spent Total Time Spent (In Minutes): 15 Discharge Plan Discharge Items Patient Disposition: Home - Self-Care Reason For Visit: POST OP Discharge Diagnosis: Appendicitis Activity: As commented below Lifting: No more than 10 pounds Bathing Comment: ok to shower tomorrow Driving/Machine Use: Resume 3 days after discharge Non-emergency contact: Surgeon Call non-emergency contact if: you have any medication questions, your pain is not controlled, you have a fever, your temperature is above 101.5, your wound has increased redness and your wound has increased drainage Follow-up/Referrals: Walter Cadet MD [Surgeon] - (Call to make an appt in 1 week) [facility] [Primary Care Provider] - Diet: Regular Addtl Attending Provider Instructions: leave steri-strips on until your appt Pending Studies at Discharge: No Stand-Alone Forms: [employer], Opioid Pain Management, Work/School Release (Inpt), Smoking Cessation Medications and DC Order Prescriptions: New oxycodone-acetaminophen [Percocet] 5-325 mg tablet 1 - 2 tab PO Q4H PRN (Reason: pain, initial therapy, max 8 daily) Qty: 15 RF: 0 Continued levonorgestrel-ethinyl estrad [Larissia] 0.1-20 mg-mcg tablet 1 tab PO DAILY RF: 0 Discontinued acetaminophen [Tylenol Extra Strength] 500 mg Tablet 1,000 mg PO Q6H PRN (Reason: Pain) RF: 0 Discharge Orders: Discharge Order (Routine); Ordered 09/13/19 Ordered By: Jeff Durand/Other Patient Handouts: Oxycodone Hydrochloride Acetaminophen Oral tablet Admission Data Admit Date/Time: 09/13/19 06:13 Attending Provider: Walter Cadet Admit Provider: Walter Cadet Primary Care Provider: [facility] Other Providers: Walter Cadet Other Interventions: Discharge Summary Assessment (RN) Last Done: 09/13/19 11:45 DC Date/Time DO NOT enter until pt leaves facility: 09/13/19 14:16
== END 2019-09-13 14:16 | disposition home or self-care (01) ==
LOC: ED 22:02 → 3W 09-13 05:00 → OR 09-13 05:00